=== PATIENT | female | born 1965 | race Caucasian/White ===

== ENCOUNTER 2016-08-07 08:24 | Outpatient (CLI) ==
[2015-02-13 13:18] VITALS: BMI 30.1
--- NOTE | 2016-08-07 09:02 | US ---
EXAM: ULTRASOUND ABDOMEN LIMITED HISTORY: Right upper quadrant abdominal pain FINDINGS: Ultrasound abdomen, limited. Liver size was normal at about 12 cm. The liver parenchyma demonstrated normal sonographic appearance without evidence of intrahepatic biliary dilatation or fo tony lesion. Patent and hepatopedal portal vein. No evidence of gallbladder stones or sludge. Gallbladder wall thickness was normal at 0.13 centimet ers and the common duct diameter normal at 0.39 centimeters. The visualized portions of the pancreas appeared unremarkable. IMPRESSION: Findings within normal limits.
== END 2016-08-07 08:25 | disposition home or self-care (01) ==
LOC: RAD 08:24
PROVIDERS: ATTEND Physician Assistant Medical
DX: R10.11 Right upper quadrant pain (principal)

== ENCOUNTER 2016-08-21 07:53 | Outpatient (CLI) ==
[2015-02-13 13:18] VITALS: BMI 30.1
--- NOTE | 2016-08-21 10:31 | NM ---
EXAM: Hepatobiliary imaging HISTORY: Abdominal pain COMPARISON: Limited abdominal ultrasound on 08/07/2016 was within normal limits. TECHNIQUE: Patient was injected 5.1 mCi of technetium 99m Choletec intravenously. Multiple anterior scintigraphic images of the right upper quadrant region of the abdomen were obtained up to 1 hour i nterval. Patient was infused 1.4 mcg of cholecystokinin intravenously. Gallbladder ejection fracti on was calculated. FINDINGS: There is normal visualization of liver, gallbladder, bile duct and small bowel loops. Gal lbladder ejection fraction is 86%. IMPRESSION: Normal study
== END 2016-08-21 07:54 | disposition home or self-care (01) ==
LOC: RAD 07:53
PROVIDERS: ATTEND Physician Assistant Medical
DX: R10.9 Unspecified abdominal pain (principal)